=== PATIENT | male | born 1950 | race African-American/Black ===

== ENCOUNTER 2018-04-15 14:02 | Emergency (ER) | payer MEDICARE, OTHER ==
[~2018-04-15] VITALS: Ht 170.2 cm; Wt 145.0 kg
[2018-04-15] MEDS ORDERED: KEPPRA (14:24)
[2018-04-15] MEDS ORDERED: HTN (14:24)
[2018-04-15 18:10] VITALS: BP 171/94
== END 2018-04-15 18:31 | disposition home or self-care (01) ==
LOC: EDBD 14:02 → ED 15:10
DX: S00.93XA Contusion of unspecified part of head, initial encounter (principal); F10.220 Alcohol dependence with intoxication, uncomplicated; W01.0XXA Fall on same level from slipping, tripping and stumbling without subsequent striking against object, initial encounter; Y93.89 Activity, other specified; Y99.8 Other external cause status; Y92.811 Bus as the place of occurrence of the external cause
CPT/HCPCS: 70450; 99284